=== PATIENT | male | born 1970 | race Caucasian/White ===

== ENCOUNTER 2023-07-13 07:56 | Emergency (ER) | payer BC ==
[~2023-07-13] VITALS: Ht 172.7 cm; Wt 86.2 kg
[2023-07-13] MEDS: TETANUS/DIPHTHERIA TOXOID [ADULT] 0.5 ML VIAL IM ONE (08:23)
[2023-07-13] MEDS ORDERED: MUPI22O TP (09:14)
[2023-07-13] MEDS: CEPHALEXIN 500 MG CAPSULE PO ONE (09:14)
[2023-07-13] MEDS ORDERED: CEPH500B PO (09:14)
[2023-07-13] MEDS ORDERED: IBUP-2077 PO (09:14)
[2023-07-13 09:25] VITALS: BP 141/80; PULSE 70; RESP 16; O2SAT 98
[2023-07-13] MEDS: IBUPROFEN 800 MG TAB PO ONE (09:27)
== END 2023-07-13 09:33 | disposition home or self-care (01) ==
LOC: EDH 07:56
DX: S61.211A Laceration without foreign body of left index finger without damage to nail, initial encounter (principal); Z79.899 Other long term (current) drug therapy; Z98.890 Other specified postprocedural states; W26.0XXA Contact with knife, initial encounter; Y93.89 Activity, other specified; Y92.89 Other specified places as the place of occurrence of the external cause; Y99.8 Other external cause status
CPT/HCPCS: 73140; 90471; 90714